=== PATIENT | female | born 1965 | race Asian ===

== ENCOUNTER 2016-12-19 14:23 | Outpatient (CLI) | payer OTHER | END 2016-12-19 15:30 | disposition home or self-care (01) | LOC: RAD 14:23 | DX: M25.561 Pain in right knee (principal) ==

== ENCOUNTER 2017-08-09 12:11 | Day surgery (SDC) | payer OTHER ==
[2017-08-09 13:15] LABS: POTASSIUM 3.2 mmol/L (3.6-5.2); SODIUM 137 mmol/L (136-145)
[2017-08-09 13:20] LABS: PLATELET COUNT 285 K/uL (152-353)
== END 2017-08-09 15:42 | disposition home or self-care (01) ==
LOC: OR 12:11
PROVIDERS: Internal Medicine Gastroenterology
PROC: 0DBM8ZZ Excision of Descending Colon, Via Natural or Artificial Opening Endoscopic (ICD-10-PCS; principal; 2017-08-09)
PROC: 0DBN8ZZ Excision of Sigmoid Colon, Via Natural or Artificial Opening Endoscopic (ICD-10-PCS; 2017-08-09)
DX: K63.5 Polyp of colon (principal); D12.4 Benign neoplasm of descending colon; K64.8 Other hemorrhoids; Z80.0 Family history of malignant neoplasm of digestive organs; Z12.11 Encounter for screening for malignant neoplasm of colon
CPT/HCPCS: 80053; 85027; J2001; J2250; J2405; J2704; J3010; S0028

== ENCOUNTER 2017-09-17 12:19 | Emergency (ER) | payer OTHER ==
[~2017-09-17] VITALS: Ht 165.1 cm; Wt 123.4 kg
[2017-09-17 12:31] VITALS: TEMP 98.2
[2017-09-17 13:15] LABS: PLATELET COUNT 339 K/uL (152-353)
[2017-09-17 13:22] LABS: POTASSIUM 3.5 mmol/L (3.6-5.2)
[2017-09-17 15:45] VITALS: BP 130/78
== END 2017-09-17 15:55 | disposition home or self-care (01) ==
LOC: ED 12:19
DX: N83.292 Other ovarian cyst, left side (principal)
CPT/HCPCS: 36415; 80053; 82150; 83690; 85027; 99283; Q9963

== ENCOUNTER 2018-01-27 12:53 | Emergency (ER) | payer OTHER ==
[~2018-01-27] VITALS: Ht 165.1 cm; Wt 77.1 kg
[2018-01-27 14:18] LABS: PLATELET COUNT 312 K/uL (152-353)
[2018-01-27 14:25] LABS: POTASSIUM 3.8 mmol/L (3.6-5.2)
[2018-01-27 15:56] VITALS: BP 161/94; TEMP 99.1
== END 2018-01-27 16:00 | disposition home or self-care (01) ==
LOC: ED 12:53
DX: M50.30 Other cervical disc degeneration, unspecified cervical region (principal); M51.36 Other intervertebral disc degeneration, lumbar region
CPT/HCPCS: 80053; 85027; 96374; 96375; 99283; J1100; J1885

== ENCOUNTER 2018-05-15 15:32 | Outpatient (CLI) | payer OTHER | END 2018-05-15 22:33 | disposition home or self-care (01) | LOC: LABW 15:32 | DX: M10.071 Idiopathic gout, right ankle and foot (principal); M10.072 Idiopathic gout, left ankle and foot | CPT/HCPCS: 36415; 84550; 85651 ==

== ENCOUNTER 2018-08-29 16:58 | Outpatient (CLI) | payer OTHER | END 2018-08-29 22:46 | disposition home or self-care (01) | LOC: LABW 16:58 | DX: R10.84 Generalized abdominal pain (principal) | CPT/HCPCS: 36415; 80076; 82150; 83690 ==

== ENCOUNTER 2018-10-04 08:03 | Outpatient (CLI) | payer OTHER ==
[2018-10-04 08:26] LABS: PLATELET COUNT 299 K/uL (152-353)
[2018-10-04 08:41] LABS: POTASSIUM 3.8 mmol/L (3.6-5.2)
== END 2018-10-04 19:33 | disposition home or self-care (01) ==
LOC: LABW 08:03
DX: M06.4 Inflammatory polyarthropathy (principal); M17.0 Bilateral primary osteoarthritis of knee; Z68.41 Body mass index [BMI] 40.0-44.9, adult; Z79.899 Other long term (current) drug therapy
CPT/HCPCS: 36415; 80053; 85027; 85651; 86140

== ENCOUNTER 2019-04-19 16:29 | Emergency (ER) | payer OTHER ==
[~2019-04-19] VITALS: Ht 165.1 cm; Wt 104.8 kg
[2019-04-19 16:40] VITALS: TEMP 98.8
[2019-04-19] MEDS ORDERED: ESOMEPRAZOLE MA40 M1 PO (17:23)
[2019-04-19] MEDS ORDERED: PANTOPRAZOLE 40MG TA PO (17:23)
[2019-04-19] MEDS ORDERED: ATENOLOL100 M1 PO (17:24)
[2019-04-19] MEDS ORDERED: TRAMADOL HYDROC50 MG PO (17:24)
[2019-04-19] MEDS ORDERED: CARAFATE1 GM PO (17:24)
[2019-04-19] MEDS ORDERED: METHIMAZOLE5 MG PO (17:25)
[2019-04-19 17:47] LABS: PLATELET COUNT 384 K/uL (152-353)
[2019-04-19 19:55] VITALS: BP 116/75
== END 2019-04-19 20:00 | disposition home or self-care (01) ==
LOC: ED 16:29
PROVIDERS: Family Medicine
DX: K21.9 Gastro-esophageal reflux disease without esophagitis (principal); E87.6 Hypokalemia; R11.2 Nausea with vomiting, unspecified; Z98.84 Bariatric surgery status
CPT/HCPCS: 80053; 81000; 85027; 99283

== ENCOUNTER 2019-07-03 09:13 | Outpatient (CLI) | payer OTHER ==
[~2019-07-03 09:13] MED LIST: ATENOLOL100 M1 PO; CARAFATE1 GM PO; ESOMEPRAZOLE MA40 M1 PO; METHIMAZOLE5 MG PO; PANTOPRAZOLE 40MG TA PO; TRAMADOL HYDROC50 MG PO
[2019-07-03 09:38] LABS: POTASSIUM 3.4 mmol/L (3.6-5.2)
== END 2019-07-03 20:35 | disposition home or self-care (01) ==
LOC: LABW 09:13
PROVIDERS: Internal Medicine Endocrinology, Diabetes & Metabolism
DX: E05.20 Thyrotoxicosis with toxic multinodular goiter without thyrotoxic crisis or storm (principal)
CPT/HCPCS: 36415; 80053

== ENCOUNTER 2019-07-22 21:34 | Emergency (ER) | payer OTHER ==
[~2019-07-22] VITALS: Ht 165.1 cm; Wt 90.7 kg
[2019-07-22 21:40] VITALS: TEMP 97.9
[2019-07-22 22:40] VITALS: BP 98/76
== END 2019-07-22 22:40 | disposition home or self-care (01) ==
LOC: ED 21:34
PROC: 0RSWXZZ Reposition Right Finger Phalangeal Joint, External Approach (ICD-10-PCS; principal; 2019-07-22)
DX: S63.286A Dislocation of proximal interphalangeal joint of right little finger, initial encounter (principal); W19.XXXA Unspecified fall, initial encounter; Y93.89 Activity, other specified; Y92.89 Other specified places as the place of occurrence of the external cause
CPT/HCPCS: 99283

== ENCOUNTER 2022-01-17 12:46 | Outpatient (CLI) | payer OTHER ==
[2022-01-17 13:07] LABS: PLATELET COUNT 272 K/uL (152-353)
[2022-01-17 13:28] LABS: POTASSIUM 3.8 mmol/L (3.6-5.2)
== END 2022-01-17 18:50 | disposition home or self-care (01) ==
LOC: LABW 12:46
PROVIDERS: ATTEND Physician Assistant
DX: D72.818 Other decreased white blood cell count (principal); D64.89 Other specified anemias; K91.2 Postsurgical malabsorption, not elsewhere classified; Z98.84 Bariatric surgery status; E53.8 Deficiency of other specified B group vitamins
CPT/HCPCS: 36415; 80053; 85027

== ENCOUNTER 2022-01-31 08:44 | Outpatient (CLI) | payer OTHER ==
[2022-01-31 09:49] LABS: PLATELET COUNT 235 K/uL (152-353)
[2022-01-31 10:09] LABS: POTASSIUM 3.4 mmol/L (3.6-5.2)
== END 2022-01-31 18:52 | disposition home or self-care (01) ==
LOC: LABW 08:44
PROVIDERS: ATTEND Nurse Practitioner Family
DX: D64.89 Other specified anemias (principal); K91.2 Postsurgical malabsorption, not elsewhere classified; Z98.84 Bariatric surgery status; D72.818 Other decreased white blood cell count; E53.8 Deficiency of other specified B group vitamins; R53.1 Weakness; Z79.899 Other long term (current) drug therapy; R53.83 Other fatigue; R73.01 Impaired fasting glucose; E89.0 Postprocedural hypothyroidism; E83.51 Hypocalcemia
CPT/HCPCS: 36415; 80053; 80061; 82232; 82330; 82784; 83036; 83615; 83735; 83883; 83970; 84100; 84165; 84166; 84439; 84443; 84480; 84481; 85027; 86334; 86335

== ENCOUNTER 2022-05-26 15:48 | Outpatient (CLI) | payer OTHER | END 2022-05-26 23:14 | disposition home or self-care (01) | LOC: RAD 15:48 | PROVIDERS: ATTEND Nurse Practitioner Family | DX: M06.4 Inflammatory polyarthropathy (principal); M17.0 Bilateral primary osteoarthritis of knee; Z79.891 Long term (current) use of opiate analgesic; Z79.899 Other long term (current) drug therapy ==